=== PATIENT | female | born 1955 | race Caucasian/White ===

== ENCOUNTER 2018-01-16 11:24 | Emergency (ER) | payer OTHER ==
[2018-01-16] MEDS ORDERED: APAP/HYDROCODONE 325/5 TAB PO ONE (11:40)
[2018-01-16] MEDS ORDERED: ONDANSETRON 4 MG ODT TABDP SL ONE (11:40)
--- NOTE | 2018-01-16 11:41 | ER Report ---
History and Physical Time Seen By MD: 11:38 Hx. of Stated Complaint: pt fell off curb and L knee and L wrist, hit head with no loc. deformity L wrist and contusion on L side forehead HPI/ROS CHIEF COMPLAINT: Mechanical trip and fall HISTORY OF PRESENT ILLNESS: This is a 63-year-old female presents to the emergency department for mechanical trip and fall. Patient states she tripped over a curb today fell down with her left wrist outstretched which did take the brunt of the fall, she also struck her left knee and her left alevism. Patient denies LOC. Patient was able to ambulate after the fall. She also states that she did injure her right wrist as well. There is an obvious deformity of the left wrist, and small abrasion. Patient does have swelling and discomfort to the left alevism. No visual changes. Mild headache however the majority of pain is in the left wrist. Patient denies smoking pain to the left knee. She states that she feels there is a bruise there otherwise unremarkable. There is an abrasion to the left knee. No fevers or chills. No nausea or vomiting. No chest pain or shortness of breath. REVIEW OF SYSTEMS: Constitutional: No fever, no chills. Eyes: No discharge. ENT: No sore throat. Cardiovascular: No chest pain, no palpitations. Respiratory: No cough, no shortness of breath. Gastrointestinal: No abdominal pain, no vomiting. Genitourinary: No hematuria. Musculoskeletal: As above. Skin: As above. Neurological: No headache. Allergies: Coded Allergies: acetaminophen (Verified Allergy, Unknown, 01/16/18) codeine (Verified Allergy, Unknown, 01/16/18) oxycodone (Verified Allergy, Unknown, 01/16/18) Home Meds Reported Medications Loratadine/Pseudoephedrine (CLARITIN-D 24 HOUR TABLET) 1 Each Tab.er.24h, 1 EACH PO 01/16/18 Ibuprofen (ADVIL) 100 Mg Tablet, 1 TAB PO Q6H 01/16/18 Past Medical/Surgical History The patient has a past medical and surgical history of hypothyroidism, wears glasses, post menopause, arthritis, right wrist fracture, left knee fracture, left knee surgery, right wrist surgery, depression, recovering alcoholic. Reviewed Nurses Notes: Yes Hx Substance Use Disorder: No Hx Alcohol Use: Yes (alcohoolic in recovery) Constitutional Vital Sign - Last 24 Hours 01/16/18 01/16/18 01/16/18 01/16/18 11:29 11:33 11:39 11:54 Temp 97.9 Pulse 78 69 72 Resp 18 B/P (MAP) 144/89 (107) 144/89 Pulse Ox 97 96 93 O2 Delivery Room Air 01/16/18 01/16/18 01/16/18 01/16/18 12:09 12:22 12:24 12:30 Pulse 69 69 B/P (MAP) 120/70 (87) 112/63 (79) Pulse Ox 94 92 01/16/18 01/16/18 01/16/18 01/16/18 12:39 12:54 13:04 13:09 Pulse ? B/P (MAP) 128/108 (115) 01/16/18 01/16/18 01/16/18 01/16/18 13:14 13:29 13:30 13:44 Pulse ? 64 B/P (MAP) 104/74 (84) Pulse Ox 90 01/16/18 01/16/18 01/16/18 01/16/18 13:59 14:00 14:14 14:19 Pulse 61 ? B/P (MAP) 76/51 (59) Pulse Ox 98 01/16/18 01/16/18 01/16/18 01/16/18 14:22 14:30 14:34 14:49 Pulse 68 66 Resp 9 11 B/P (MAP) 134/78 (96) 122/75 (91) Pulse Ox 90 90 01/16/18 01/16/18 01/16/18 01/16/18 15:00 15:04 15:19 15:30 Pulse 58 66 Resp 18 13 B/P (MAP) 120/73 (89) 139/86 (103) Pulse Ox 99 99 01/16/18 01/16/18 01/16/18 01/16/18 15:34 15:35 15:40 15:45 Pulse 59 Resp 16 B/P (MAP) 116/74 (88) 113/77 (89) 113/71 (85) Pulse Ox 93 01/16/18 01/16/18 01/16/18 01/16/18 15:49 15:50 15:55 16:00 Pulse 57 Resp 6 B/P (MAP) 110/72 (85) 111/74 (86) 114/71 (85) Pulse Ox 97 01/16/18 01/16/18 01/16/18 01/16/18 16:04 16:05 16:10 16:15 Pulse 57 Resp 9 B/P (MAP) 120/76 (91) 123/80 (94) 125/68 (87) Pulse Ox 98 Physical Exam General Appearance: The patient is alert, has no immediate need for airway protection and no signs of toxicity. Eyes: Pupils equal and round no pallor or injection. ENT, Mouth: Mucous membranes are moist. Respiratory: There are no retractions, lungs are clear to auscultation. Cardiovascular: Regular rate and rhythm, no murmurs, clicks or rubs. Gastrointestinal: Abdomen is soft and non tender, no masses, bowel sounds normal. Neurological: Alert and oriented 4. Moving all extremity speared following all commands. No focal neuro deficits. Skin and extremities: Contusion to the left alevism, with some swelling. Abrasion and obvious deformity of the left wrist with some swelling. CMS intact distal to the injury. No crepitus. No forearm or elbow discomfort. Left knee abrasion, full range of motion, minimal pain with palpation. Musculoskeletal: Neck is supple non tender. DIFFERENTIAL DIAGNOSIS: After history and physical exam differential diagnosis was considered for wrist fracture, contusion, subluxation, cranial bleed and concussion. Medical Decision Making EKG/Imaging Imaging Location: [facility] - [place] Patient: Chhaya Mejia : 1955 Visit/Account:[id number] Date of Sevice: 01/16/2018 WRIST LEFT 2 VIEW Indication: Fracture. Reduction. Splint. Comparison: 01/16/2018 Findings: 2 views are obtained of the left wrist following fiberglass splint placement. Comminuted, impacted fracture of the distal left radial metaphysis is seen. Overall, minimal change in alignment since the prior. There is an ulnar styloid fracture also not significantly changed. Changes of osteoarthritis noted. IMPRESSION: 1. Fiberglass splint placement for external fixation of fractures of the distal left radius and ulna. No significant change in alignment. Report Dictated By: Lewis Joyner at 01/16/2018 3:58 PM Report E-Signed By: Lewis Joyner at 01/16/2018 4:00 PM WSN:[id number] Technique: FOREARM LEFT, WRIST LEFT MIN 3 VIEW HISTORY: fall, pain Comparison studies: None FINDINGS: Present is an acute, comminuted, intra-articular impacted fracture involving the distal left radial metadiaphysis. Also noted is an acute ulna styloid avulsion fracture. Degenerative changes are seen at the first CMC joint. Soft tissue swelling surrounds the fracture site. IMPRESSION: 1. Acute, impacted, intra-articular fracture involving the distal left radial metadiaphysis. 2. Acute, displaced ulna styloid fracture. Report Dictated By: Keven Wing DO at 01/16/2018 1:06 PM Report E-Signed By: Keven Wing DO at 01/16/2018 1:08 PM WSN:[id number] CT Head without contrast Indication: Fall, head to left alevism Comparison: None available Technique: Axial CT images were obtained through the brain from the skull base to the vertex without administration of IV contrast. Reformatted coronal and sagittal images were also obtained. One of the following dose optimization techniques was utilized in the performance of this exam: Automated exposure control; adjustment of the mA an d/or kV according to the patient's size; or use of an iterative reconstruction technique. Specific details can be referenced in the facility's radiology CT exam operational policy. Findings: There is no acute hemorrhage, midline shift or mass effect. No extra-axial fluid collections. The choi-white matter differentiation is maintained. The ventricles and basal cisterns are normal in contour and appearance. The visualized paranasal sinuses and mastoid air cells are clear. Soft tissue swelling overlies the left temporal bone. IMPRESSION: 1. No acute intracranial process. Report Dictated By: Keven Wing DO at 01/16/2018 1:38 PM Report E-Signed By: Keven Wing DO at 01/16/2018 1:42 PM WSN:[id number] Technique: FOREARM LEFT, WRIST LEFT MIN 3 VIEW HISTORY: fall, pain Comparison studies: None FINDINGS: Present is an acute, comminuted, intra-articular impacted fracture involving the distal left radial metadiaphysis. Also noted is an acute ulna styloid avulsion fracture. Degenerative changes are seen at the first CMC joint. Soft tissue swelling surrounds the fracture site. IMPRESSION: 1. Acute, impacted, intra-articular fracture involving the distal left radial metadiaphysis. 2. Acute, displaced ulna styloid fracture. Report Dictated By: Keven Wing DO at 01/16/2018 1:06 PM Report E-Signed By: Keven Wing DO at 01/16/2018 1:08 PM WSN:[id number] Technique: WRIST RIGHT MIN 3 VIEW HISTORY: fall, pain Comparison studies: None FINDINGS: Age-indeterminate ossific densities are seen dorsal to the carpal row. The alignment of the right wrist is maintained. Overall, there is decreased cortical mineralization consistent with osteopenia. Degenerative changes are seen at the first CMC joint. Soft tissue swelling overlies the wrist. IMPRESSION: 1. Age-indeterminate ossific densities dorsal to the carpal row which may repre sent the sequela of a triquetral avulsion fracture. Report Dictated By: Keven Wing DO at 01/16/2018 1:08 PM Report E-Signed By: Keven Wing DO at 01/16/2018 1:10 PM WSN:[id number] ED Course/Re-evaluation Clinical Indication for ER IV: Hydration, IV Access ED Course The patient was admitted to room. A history and physical obtained. Differential diagnoses were considered. An IV was started. 4 mg IV Zofran, 50 g IV fentanyl 3, 0.5 mg IV Dilaudid. 1 L normal saline bolus. An x-ray of the left wrist Acute, impacted, intra-articular fracture involving the distal left radial metadiaphysis. Acute, displaced ulna styloid fracture. Negative right wrist, negative head CT, negative left forearm. I did review the imaging results with the patient, did explain to her that we would need to sedate her and reduce the left wrist injury, patient expressed understanding. Procedural sedation as noted below. Patient tolerated well. Patient was given a total of 60 mg IV propofol. I was assisted by Dr. Mclean. Post reduction showing improved alignment on the AP. The injury was splinted as noted below, placed in a sling. CTs were sent with the patient, she will follow up with her orthopedic surgeon that she has in [facility] on Thursday. Patient denied narcotic pain medications that she is a recovering alcoholic, patient states she will take ibuprofen or Tylenol as stated for her pain. Procedure: Procedural sedation. A pre-sedation evaluation was completed on the patient at 1535. Patient is an appropriate candidate for procedural sedation. The risks of the sedation were discussed with the patient. A time out was completed. The patient was sedated with 60 mg IV propofol and just prior to sedation 50 g IV fentanyl. The patient was monitored with continuous pulse oximetry and monitoring coordinator. There were no complications and no significant hypoxemia. I remained at the bedside for the sedation. The total time I spent in the procedural sedation was 10 minutes, with Dr. Mclean. Procedure: Reduction of left wrist fracture The left wrist was reduced in the usual fashion without complications. Post reduction the patient's neurovascular exam is normal. Post reduction x-ray demonstrates reduction of the wrist in improved position. The procedure was performed by myself and Dr. Mclean. Decision to Disposition Date: Jan 16, 2018 Decision to Disposition Time: 16:27 Depart Departure Latest Vital Signs Vital Signs Date Time Temp Pulse Resp B/P (MAP) Pulse Ox O2 Delivery O2 Flow Rate FiO2 01/16/18 16:15 125/68 (87) 01/16/18 16:04 57 9 98 01/16/18 11:33 97.9 Room Air Impression: Primary Impression: Left wrist fracture Condition: Improved Disposition: HOME OR SELF-CARE Patient Instructions: Wrist Fracture in Adults (ED) Additional Instructions: Be sure to schedule follow-up appointment with your orthopedist Thursday. Keep the splint on until he follow-up with your orthopedist. Use a sling for comfort. You can take ibuprofen or Tylenol as needed for pain. Try to keep the arm elevated as much as possible. Return to the emergency department for any other concerns or worsening symptoms. Drink plenty of water. Get plenty of rest. Problem Qualifiers Primary Impression: Left wrist fracture Encounter type: initial encounter Fracture type: closed Qualified Codes: S62.102A - Fracture of unspecified carpal bone, left wrist, initial encounter for closed fracture AKIRA POLO CHIEF SAFETY OFFICER-BC Jan 16, 2018 11:41
[2018-01-16] MEDS ORDERED: IBUP100T51 PO (11:42)
[2018-01-16] MEDS ORDERED: LORA1TAB69 PO (11:42)
[2018-01-16] MEDS ORDERED: ONDANSETRON 4 MG/2 ML VIAL IVP ONE ×2 (11:55→15:20)
[2018-01-16] MEDS ORDERED: fentaNYL CITR 100 MCG/2 ML AMP IVP ONE ×3 (11:55→14:20)
--- NOTE | 2018-01-16 13:12 | RADIOLOGY IMAGING REPORT ---
FACILITY: [facility] [place] PATIENT NAME: Chhaya Mejia : 1955 MR: [id number] V: [id number] EXAM DATE: ORDERING PHYSICIAN: AKIRA POLO TECHNOLOGIST: Location: [facility] Patient: Chhaya Mejia : 1955 Visit/Account:[id number] Date of Sevice: 01/16/2018 Technique: FOREARM LEFT, WRIST LEFT MIN 3 VIEW HISTORY: fall, pain Comparison studies: None FINDINGS: Present is an acute, comminuted, intra-articular impacted fracture involving the distal lef t radial metadiaphysis. Also noted is an acute ulna styloid avulsion fracture. Degenerative changes a re seen at the first CMC joint. Soft tissue swelling surrounds the fracture site. IMPRESSION: 1. Acute, impacted, intra-articular fracture involving the distal left radial metadiaphysis. 2. Acute, displaced ulna styloid fracture. Report Dictated By: Keven Wing DO at 01/16/2018 1:06 PM Report E-Signed By: Keven Wing DO at 01/16/2018 1:08 PM WSN:[id number]
--- NOTE | 2018-01-16 13:12 | RADIOLOGY IMAGING REPORT ---
FACILITY: [facility] - [place] PATIENT NAME: Chhaya Mejia : 1955 MR: [id number] V: [id number] EXAM DATE: ORDERING PHYSICIAN: AKIRA POLO TECHNOLOGIST: Location: [facility] [place] Patient: Chhaya Mejai : 1955 Visit/Account:[id number] Date of Sevice: 01/16/2018 Technique: FOREARM LEFT, WRIST LEFT MIN 3 VIEW HISTORY: fall, pain Comparison studies: None FINDINGS: Present is an acute, comminuted, intra-articular impacted fracture involving the distal lef t radial metadiaphysis. Also noted is an acute ulna styloid avulsion fracture. Degenerative changes a re seen at the first CMC joint. Soft tissue swelling surrounds the fracture site. IMPRESSION: 1. Acute, impacted, intra-articular fracture involving the distal left radial metadiaphysis. 2. Acute, displaced ulna styloid fracture. Report Dictated By: Keven Wing DO at 01/16/2018 1:06 PM Report E-Signed By: Keven Wing DO at 01/16/2018 1:08 PM WSN:[id number]
--- NOTE | 2018-01-16 13:14 | RADIOLOGY IMAGING REPORT ---
FACILITY: [facility] - [place] PATIENT NAME: Chhaya Mejia : 1955 MR: [id number] V: [id number] EXAM DATE: ORDERING PHYSICIAN: AKIRA POLO TECHNOLOGIST: Location: [facility] Patient: Chhaya Mejia : 1955 Visit/Account:[id number] Date of Sevice: 01/16/2018 Technique: WRIST RIGHT MIN 3 VIEW HISTORY: fall, pain Comparison studies: None FINDINGS: Age-indeterminate ossific densities are seen dorsal to the carpal row. The alignment of the right wrist is maintained. Overall, there is decreased cortical mineralization consistent with osteo penia. Degenerative changes are seen at the first CMC joint. Soft tissue swelling overlies the wrist. IMPRESSION: 1. Age-indeterminate ossific densities dorsal to the carpal row which may represent the sequela of a triquetral avulsion fracture. Report Dictated By: Keven Wing DO at 01/16/2018 1:08 PM Report E-Signed By: Keven Wing DO at 01/16/2018 1:10 PM WSN:[id number]
[2018-01-16] MEDS ORDERED: HYDROMORPHONE HCL 1 MG/ML SYRINGE IVP ONE (13:15)
--- NOTE | 2018-01-16 13:45 | RADIOLOGY IMAGING REPORT ---
FACILITY: [facility] - [place] PATIENT NAME: Chhaya Mejia : 1955 MR: [id number] V: [id number] EXAM DATE: ORDERING PHYSICIAN: AKIRA POLO TECHNOLOGIST: Location: [facility] [place] Patient: Chhaya Mejia : 1955 Visit/Account:[id number] Date of Sevice: 01/16/2018 CT Head without contrast Indication: Fall, head to left mandaen Comparison: None available Technique: Axial CT images were obtained through the brain from the skull base to the vertex without administration of IV contrast. Reformatted coronal and sagittal images were also obtained. One of the following dose optimization techniques was utilized in the performance of this exam: Autom ated exposure control; adjustment of the mA and/or kV according to the patient's size; or use of an i terative reconstruction technique. Specific details can be referenced in the facility's radiology C T exam operational policy. Findings: There is no acute hemorrhage, midline shift or mass effect. No extra-axial fluid collecti ons. The choi-white matter differentiation is maintained. The ventricles and basal cisterns are nor mal in contour and appearance. The visualized paranasal sinuses and mastoid air cells are clear. Soft tissue swelling overlies the left temporal bone. IMPRESSION: 1. No acute intracranial process. Report Dictated By: Keven Wing DO at 01/16/2018 1:38 PM Report E-Signed By: Keven Wing DO at 01/16/2018 1:42 PM WSN:[id number]
[2018-01-16] MEDS ORDERED: PROPOFOL EMUL 10MG/ML 20 ML VL IVP ONE (14:20)
--- NOTE | 2018-01-16 16:04 | RADIOLOGY IMAGING REPORT ---
FACILITY: [facility] - [place] PATIENT NAME: Chhaya Mejia : 1955 MR: [id number] V: [id number] EXAM DATE: ORDERING PHYSICIAN: AKIRA POLO TECHNOLOGIST: Location: [facility] - [place] Patient: Chhaya Mejia : 1955 Visit/Account:[id number] Date of Sevice: 01/16/2018 WRIST LEFT 2 VIEW Indication: Fracture. Reduction. Splint. Comparison: 01/16/2018 Findings: 2 views are obtained of the left wrist following fiberglass splint placement. Comminuted, impacted fr acture of the distal left radial metaphysis is seen. Overall, minimal change in alignment since the p rior. There is an ulnar styloid fracture also not significantly changed. Changes of osteoarthritis no [place]. IMPRESSION: 1. Fiberglass splint placement for external fixation of fractures of the distal left radius and ulna. No significant change in alignment. Report Dictated By: Lewis Joyner at 01/16/2018 3:58 PM Report E-Signed By: Lewis Joyner at 01/16/2018 4:00 PM WSN:[id number]
[2018-01-16 16:15] VITALS: BP 125/68
== END 2018-01-16 17:00 | disposition home or self-care (01) ==
LOC: ER 11:32
DX: S52.572A Other intraarticular fracture of lower end of left radius, initial encounter for closed fracture (principal); S52.612A Displaced fracture of left ulna styloid process, initial encounter for closed fracture; W01.0XXA Fall on same level from slipping, tripping and stumbling without subsequent striking against object, initial encounter
CPT/HCPCS: 25605; 70450; 73090; 73100; 73110; 96374; 96375; 96376; 99285; A4565; J1170; J2405; J2704; J3010